=== PATIENT | female | born 1960 ===

== ENCOUNTER 2019-03-10 08:18 | Outpatient (CLI) | payer OTHER | END 2019-03-10 08:20 | disposition home or self-care (01) | LOC: SONOGRAMA 08:18 → MAMO-SONO 08:45 | DX: R10.84 Generalized abdominal pain (principal) ==

== ENCOUNTER → 2019-06-18 | Outpatient (CLI) | payer OTHER | END | disposition home or self-care (01) | LOC: MAMO-SONO 07:45 → SONOGRAMA 08:10 | DX: K82.4 Cholesterolosis of gallbladder (principal) ==

== ENCOUNTER 2019-06-29 13:19 | Outpatient (CLI) | payer OTHER | END 2019-06-29 13:29 | disposition home or self-care (01) | LOC: RAD 13:19 | DX: M25.561 Pain in right knee (principal); M25.562 Pain in left knee ==